=== PATIENT | male | born 1960 | race Caucasian/White ===

== ENCOUNTER 2024-04-02 07:34 | Emergency (ER) | payer OTHER, SELFPAY ==
[2024-04-02 07:35] VITALS: BP 184/95; BP 206/101; PULSE 86; PULSE 91; RESP 14; RESP 16; TEMP 36.8; O2SAT 97; O2SAT 99; BMI 36.2
--- NOTE | 2024-04-02 07:45 | EX.ED.UPPERE ---
HPI History of Present Illness Chief Complaint: Laceration Informant: patient Narrative Narrative: 64-year-old male presenting to the emergency room with right index finger injury. The patient got his finger caught in a door causing laceration in both the front and backside of the finger. He denies any other injuries. Unknown last tetanus. PFSH PFSH Medical History no medical history Home Medications ?Medication ?Instructions ?Recorded ?Last Taken ?Type cephalexin 500 mg capsule 500 mg PO Q6 #28 CAPSULES 04/02/24 Unknown Rx oxycodone-acetaminophen 5 mg-325 1 tab PO Q6H PRN PRN Pain 3 days 04/02/24 Unknown Rx mg tablet #12 TABLETS Allergy/AdvReac Type Severity Reaction Status Date / Time No Known Allergies Allergy Verified 04/02/24 07:36 Surgical History no surgical history Social History Smoking Status: Never smoker ROS ROS ED Constitutional Constitutional ED: Denies chills or weight loss Eyes Eyes: Denies change in vision or diplopia ENT ENT ED: Denies ear pain, rhinorrhea or sore throat Cardiovascular Cardiovascular: Denies chest pain, orthopnea, palpitations or racing heartbeat Respiratory/Chest Respiratory/Chest: Denies cough, dyspnea or orthopnea Gastrointestinal Gastrointestinal: Denies abdominal pain, diarrhea, nausea or vomiting Genitourinary Genitourinary ED: Denies dysuria, hematuria or urinary frequency Musculoskeletal Musculoskeletal: Reports other Details: See history of present illness ; Denies arthralgias or myalgias Integumentary Reports other Details: Finger lacerations ; Denies abscess or rash Neurologic Neurologic: Denies headache(s) or weakness Psychiatric Psychiatric: Denies anxiety, depression, suicidal ideation or suicidal thoughts Endocrine Endocrinology: Denies polydipsia, polyphagia or polyuria Allergic/Immunologic Allergic/Immunologic ED: Denies mouth swelling, tongue swelling or urticaria EXAM Physical Exam Const Vital Signs: 04/02/24 07:35 04/02/24 07:35 Temperature 98.3 F Temperature Source Temporal Pulse Rate 86 91 Respiratory Rate 14 16 Blood Pressure 184/95 H 206/101 H Blood Pressure Mean 124 136 Pulse Ox 97 99 Oxygen Delivery Method Room Air Room Air Positive well nourished and well developed General Appearance ED: well developed and NAD HEENT Reports normocephalic, head/scalp atraumatic and moist mucous membranes Eyes PERRL and EOMs intact bilaterally Neck full ROM, no lymphadenopathy, supple and no JVD Resp normal respiratory effort and clear to auscultation bilaterally Cardio regular rate, regular rhythm and no murmurs GI normal to inspection, nondistended, normoactive bowel sounds and non-tender Palpation: soft Back/Spine no CVA tenderness and normal ROM Extremity Extremity Narrative: There is a 2 cm laceration over the dorsum of the right index finger. There is a 3 cm laceration over the volar aspect of the distal right index finger. The distal finger is pink. There does not appear to be any nailbed injury. Tendon function appears to be normal of both the extensor and flexor tendons (superficialis and profundus). Bilateral sensation is intact General Extremety ED: Negative for edema General Extremity: Negative for edema Neuro oriented x3 and CN's II-XII intact bilaterally Sensorium / Orientation: alert Motor Exam: strength 5/5 throughout Psych mental status grossly normal Mood & Affect: Negative for depressed or tearful Skin no rashes or lesions noted MDM MDM MDM Narrative Medical decision making narrative: Differential diagnosis includes but not limited to fracture neurovascular injury tendon injury contusion nail injury My independent interpretation the plain films of the right index finger is acute middle phalanx fracture. Patient underwent digital block using 1% lidocaine. Once adequate anesthesia was achieved the wound on the dorsum of the finger was washed with Shur-Clens and explored. I do not feel that this goes to the level of the tendon. His extensor mechanism is intact. This was closed using a total of 5 simple interrupted 4-0 Ethilon sutures. The volar laceration was washed with Shur-Clens and explored. This was closed using a total of 10 simple interrupted 4-0 Ethilon sutures. Tendon function continues to be intact. The wound was deep but I am not able to visualize the tendons. I am not able to visualize bone. Wound was then dressed wrapped with Coban. After I wrapped the finger the distal tip which was able to be visualized appeared purple and the nailbed was dusky. I am wrapped it and this did not change the coloring. If the patient places his hand downward the finger pinked up and nailbed appears normal. If he keeps it up or horizontal it does turn this purpleish and dusky color. However it does not turn cold and is still warm. The patient was observed in the digital block was wearing off. He notes he still feels sensation in the tip. 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 I discussed with the patient that we could have [facility] hand beam in for an evaluation using telehand. Patient believes that he is going to be okay. We talked about the possibility of infection about neurovascular injury. He states if he has any concerns he can come back or he will follow-up with hand surgery as an outpatient. It is clear to the patient that I am concerned about his neurovascular status and his ability to heal this wound and the potential of a future amputation. History & Record Review Discussion w/independent historian: Patient and Friend Discharge Plan Triage Chief Complaint: Laceration ED Provider: Lan Hernández Dx/Rx/DC Orders Clinical Impression: Crush injury to finger, Finger laceration, Open finger fracture Instructions: ED Crush Injury, Hand, ED Laceration, Hand: All Closures Prescriptions: New oxycodone-acetaminophen 5-325 mg tablet 1 tab PO Q6H PRN PRN (Reason: Pain) 3 Days Qty: 12 0RF cephalexin 500 mg capsule 500 mg PO Q6 Qty: 28 0RF Primary Care Provider: Care Physician,No Primary Referrals: Kirk Owens MD [Med Staff - Active Staff] - As soon as possible Activity Restrictions/Additional Instructions: Stitches need to be removed in 10 days. Print Language: Macedonian Disposition Disposition: Home, Self Care Discharge Date/Time: 04/02/24 11:17
[2024-04-02] MEDS: Ibuprofen 600 MG Tablet PO (07:55)
[2024-04-02] MEDS: Diphth,Pertuss(Acell),Tet Vac 0.5 ML Vial IM (07:56)
--- NOTE | 2024-04-02 08:25 | RAD_ITS ---
STUDY: X-RAY - RIGHT HAND, ATTENTION INDEX FINGER REASON FOR EXAM: Male, 64 years old. Laceration to the index finger from vehicle door. TECHNIQUE: 3 view(s) of the finger were obtained. COMPARISON: None. FINDINGS: Normal metacarpal head. Normal metacarpophalangeal joint. Normal proximal phalanx. Nondisplaced transverse fracture through the midportion of the middle phalanx of the index finger. Normal distal phalanx. Normal proximal interphalangeal joint. Normal distal interphalangeal joint. Soft tissue swelling. RAD/Finger(s) Min 2 Views IMPRESSION: Nondisplaced transverse fracture through the midportion of the middle phalanx of the index and with overlying soft tissue swelling. Electronically Signed: Kailash Murillo MD at 8:56 EDT ,
[2024-04-02] MEDS: Cephalexin 250 MG Capsule 500 MG PO (11:06)
== END 2024-04-02 11:17 | disposition home or self-care (01) ==
PROVIDERS: Emergency Provider Emergency Medicine; Visit Provider Emergency Medicine
DX: S62.650B Nondisplaced fracture of middle phalanx of right index finger, initial encounter for open fracture (principal); W23.2XXA Caught, crushed, jammed or pinched between a moving and stationary object, initial encounter
CPT/HCPCS: 12002; 73140; 90471; 90715; 99283